=== PATIENT | male | born 1995 | race Caucasian/White ===

== ENCOUNTER 2019-01-12 09:28 | Emergency (ER) | payer BC ==
--- NOTE | 2019-01-12 10:11 | UC ---
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 He developed an itchy rash to his arms and legs and some small hives on his right lower arm. He denies any difficulty breathing. - History of Current Complaint Chief Complaint: UCRas Time Seen by Provider: 01/12/19 10:07 Stated Complaint: SKIN COMPLAINT Hx Obtained From: Patient Onset/Duration: Gradual Onset Skin Exposure Onset/Duration: Days Ago Timing: Constant Onset Severity: Mild Current Severity: Moderate Pain Intensity: 0 Location: Other - Arms, legs and 2 small rash areas on his facial cheeks. Character: Pruritus, Hives - Small hives on his right lower arm. Aggravating Factor(s): Nothing Alleviating Factor(s): Nothing - Patient has been applying hydrocortisone cream without improvement. - Allergy/Home Medications Allergies/Adverse Reactions: Allergies Allergy/AdvReac Type Severity Reaction Status Date / Time No Known Allergies Allergy Verified 01/12/19 09:59 Home Medications: Home Medications Hydrocortisone 1% CREAM* [Hytone Cream 1%*] 1 applic TOPICAL QID PRN 01/12/19 [ History Confirmed 01/12/19] PMH/Surg Hx/FS Hx/Imm Hx Previously Healthy: Yes - Surgical History Surgical History: None - Family History Known Family History: Positive: Non-Contributory - Social History Occupation: Employed Full-time Alcohol Use: Occasionally Substance Use Type: None Smoking Status (MU): Never Smoked Tobacco Review of Systems All Other Systems Reviewed And Are Negative: Yes Skin: Positive: Rash - Scattered rash to arms and legs with small hives on his right forearm. Is Patient Immunocompromised?: No Physical Exam Triage Information Reviewed: Yes Appearance: Well-Appearing, No Pain Distress, Well-Nourished Vital Signs: Initial Vital Signs Temp 98.4 F 01/12/19 09:57 Pulse 84 01/12/19 09:57 Resp 16 01/12/19 09:57 BP 143/81 01/12/19 09:57 Pulse Ox 98 01/12/19 09:57 Vital Signs Reviewed: Yes Eyes: Positive: Conjunctiva Clear Respiratory: Positive: Lungs clear, Normal breath sounds, No respiratory distress, No accessory muscle use Cardiovascular: Positive: RRR, No Murmur, Pulses Normal, Brisk Capillary Refill Musculoskeletal Exam: Normal Neurological Exam: Normal Psychological Exam: Normal Skin: Positive: Rashes - Patient has scattered areas of contact dermatitis on his arms and legs. His right inner forearm has some small hives. His facial cheeks have a small area of rash approximately 1.0 cm in diameter. Course/Dx - Course Course Of Treatment: Patient is comfortable here and did no distress. Going to treated with prednisone taper and he may also take Benadryl 25-50 mg by mouth every 6 hours as needed. He is to follow-up with his primary care provider as needed and go to the emergency room if any facial swelling, difficulty breathing, feeling of throat closing or wheezing. He is to stop applying the topical hydrocortisone. - Diagnoses Provider Diagnosis: Contact dermatitis Discharge ED - Sign-Out/Discharge Documenting (check all that apply): Patient Departure All imaging exams completed and their final reports reviewed: No Studies - Discharge Plan Condition: Fair Disposition: HOME Prescriptions: predniSONE TAB* [Deltasone 10 MG TAB*] 10 mg PO DAILY 12 Days #30 tab Patient Education Materials: Contact Dermatitis (DC) Referrals: Ирина Mosquera MD [Primary Care Provider] - Additional Instructions: Take the prednisone with food, avoid scratching, may take Benadryl 25 mg to 50 mg every 6 hours as needed for itching. Do not operate machinery, drive or drink alcohol when you're taking the Benadryl. Follow-up at the emergency room if you have any difficulty breathing, throat closing, increased facial swelling or any further concerns. Follow-up with your primary care provider in 4-5 days if no improvement. - Billing Disposition and Condition Condition: FAIR Disposition: Home
== END 2019-01-12 10:20 | disposition home or self-care (01) ==
LOC: UCCORT 09:28
DX: L25.9 Unspecified contact dermatitis, unspecified cause (principal)
CPT/HCPCS: 99202; G0463